=== PATIENT | female | born 1980 | race Caucasian/White ===

== ENCOUNTER 2016-09-22 08:07 | Day surgery (SDC) | payer BC, MEDICAID ==
[~2016-09-22 08:07] MED LIST: Buffered Lidocaine 0.9% SYRIN* 5 ML/SYR SYRINGE INTRADERM ONE; Dexamethasone IV* 4 MG/ML 1 ML (4 MG) IV SLOW PU ONE; Famotidine IV* 10 MG/ML 2 ML (20 mg) IV ONE
[2016-09-22] MEDS ORDERED: Dexamethasone IV* 4 MG/ML 1 ML (4 MG) ONE (08:15)
[2016-09-22] MEDS ORDERED: Buffered Lidocaine 0.9% SYRIN* 5 ML/SYR SYRINGE ONE (08:15)
[2016-09-22] MEDS ORDERED: ceFAZolin 2 GM in 100 MLS NS (*) BAG IVPB ONE (08:15)
[2016-09-22] MEDS ORDERED: Famotidine IV* 10 MG/ML 2 ML (20 mg) ONE (08:15)
[2016-09-22] MEDS ORDERED: fentaNYL* 50 MCG/ML 2 ML VIAL (100 MCG VIAL) ONE (09:06)
[2016-09-22] MEDS ORDERED: Midazolam* 1 MG/ML 5 ML VIAL (5 MG) ONE (09:06)
[2016-09-22] MEDS ORDERED: Ondansetron INJ* 2 MG/ML VIAL ONE (09:06)
[2016-09-22] MEDS ORDERED: Propofol* 10 MG/ML 20 ML BTL IV PUSH ONE (09:06)
[2016-09-22] MEDS ORDERED: Lidocaine 1% INJ* 10 MG/ML 30 ML SDV ONE ×2 (09:32→10:39)
[2016-09-22] MEDS ORDERED: oxyCODONE/Acetamin 5/325 MG* TAB PO PRN ×2 (09:39→11:09)
[2016-09-22] MEDS ORDERED: Ondansetron INJ* 2 MG/ML VIAL IV PRN (09:39)
[2016-09-22] MEDS ORDERED: Lidocaine 2% PF * 5 ML VIAL ONE (09:59)
--- NOTE | 2016-09-22 11:36 | RAD ---
Indication: Post LEFT chest port placement. Assess for pneumothorax. Comparison: January 16, 2015 Technique: Upright AP 1115 hours Report: Tip of LEFT chest port is at the level of the superior vena cava just above the RIGHT atrial junction. Negative for pneumothorax. Clear lungs and pleural spaces. The heart, pulmonary vasculature, and mediastinal contours are unremarkable. Unremarkable osseous structures and soft tissue contours. IMPRESSION: Negative for pneumothorax post LEFT chest port placement.
[2016-09-22 11:52] VITALS: BP 124/80
--- NOTE | 2016-09-22 11:56 | RAD ---
INDICATION: LEFT chest power port placement. COMPARISON: No relevant prior exams available on the [facility] PACS for comparison. TECHNIQUE: 29.7 seconds fluoroscopy. FINDINGS: Tip of the LEFT chest port is visualized at the level of the superior vena cava RIGHT atrial junction. IMPRESSION: Procedural fluoroscopy. CPT II Codes: 6045F
--- NOTE | 2016-09-23 03:42 | OP ---
CC: CHE Macedo; Felton Geiger MD * DATE OF OPERATION: 09/22/[address] - [facility] DATE OF : 76 SURGEON: Dr. Cifuentes. SLAG EXPANDER: None. ANESTHESIOLOGIST: Dr. Felton Agosto. ANESTHESIA: Local MAC. PRE-OP DIAGNOSIS: Rheumatoid arthritis. POST-OP DIAGNOSIS: Rheumatoid arthritis. OPERATIVE PROCEDURE: PowerPort placement, left internal jugular. ESTIMATED BLOOD LOSS: 10 mL. IV FLUIDS: Crystalloids. SPECIMENS: None. DRAINS: None. COMPLICATIONS: None. COUNT: The instrument, needle, and sponge counts were correct. DESCRIPTION OF PROCEDURE: The patient was brought to the operating room and placed on the operating room table supine. The patient was positioned and padded appropriately. She received appropriately intravenous antibiotics and she was prepped and draped in the usual sterile fashion and a time-out was performed. Local anesthetic was infiltrated initially for a left subclavian approach. Initial blood returned appeared arterial and therefore the needle was withdrawn and pressure applied to the site. There was no evidence of hematoma. Several additional attempts were made to access the vein without success. Ultimately, the ultrasound was then used to access the left internal jugular vein and guidewire was positioned into the superior vena cava without difficulty. The additional local anesthetic was infiltrated in the left upper chest to create a subcutaneous pocket with the use of cautery. An 8-Amharic PowerPort was then tunneled from the guidewire insertion site to the pocket and then a peel away and dilator were advanced under fluoroscopic guidance into the superior vena cava. After the dilator and guidewire were removed, the catheter was threaded into the superior vena cava and it was positioned with good tip at the atriocaval junction. The peel away sheath was removed. The catheter was cut to about 29 cm and then was attached to the port which was placed into the pocket and it was secured with a single 2-0 Surgipro suture. The port was accessed and it withdrew and flushed easily. The wounds were closed with 3-0 Polysorb to approximate the subcutaneous tissues and 4- 0 Monocryl to close the skin in a subcuticular fashion. Steri-Strips were applied. The port was once again accessed and flushed with heparinized saline. 2x2 gauze dressings and Tegaderm dressings were placed over the wounds. The patient tolerated the procedure well and was transferred to Recovery stable. [id number]/[facility] #: [id number] NUSRAT
== END 2016-09-22 12:00 | disposition home or self-care (01) ==
LOC: OR 08:07
PROVIDERS: ATTEND Surgery
DX: M06.09 Rheumatoid arthritis without rheumatoid factor, multiple sites (principal); F17.210 Nicotine dependence, cigarettes, uncomplicated; I34.1 Nonrheumatic mitral (valve) prolapse; R20.0 Anesthesia of skin
CPT/HCPCS: 71010; 76001; C1788; J1100; J1642; J2001; J2250; J2405; J2704; J3010

== ENCOUNTER 2017-01-06 09:27 | Emergency (ER) | payer BC, MEDICAID ==
[2017-01-06 09:48] VITALS: BP 129/83
--- NOTE | 2017-01-06 10:19 | UC ---
Throat Pain/Nasal Domingo HPI - History of Current Complaint Chief Complaint: UCRespiratory Stated Complaint: SINUS COMPLAINT Hx Obtained From: Patient ?: No Onset/Duration: Gradual Onset, Lasting Days Severity: Moderate Cough: Nonproductive Associated Signs & Symptoms: Positive: Sinus Discomfort, Nasal Discharge. Negative: Dysphagia, FB Sensation, Drooling, Vomiting, Rash Related History: Prior ENT Surgery - Allergies/Home Medications Allergies/Adverse Reactions: Allergies Allergy/AdvReac Type Severity Reaction Status Date / Time Erythromycin Allergy Hives Verified 01/06/17 09:48 Fluconazole [From Diflucan] Allergy See Comment Verified 01/06/17 09:48 Sulfamethoxazole Allergy Hives Verified 01/06/17 09:48 w/Trimethoprim [From Bactrim] Indomethacin AdvReac Headache Verified 01/06/17 09:48 PMH/Surg Hx/FS Hx/Imm Hx Previously Healthy: No - Rheumatoid arthritis. - Surgical History Surgical History: Yes Surgery Procedure, Year, and Place: RT KNEE ARTHROSCOPY 1995. LASIK EYE 2005. SINUS 03/2009. TUBAL 04/2009. SEVERAL D&C FROM [id number], PARTIAL PARTIAL HYSTERECTOMY (has right ovary) 01/26. 2012, left ovary removed, [facility]. LEFT OVARY REMOVED 01/27. BIOPSY - SPLEEN. PORT-09/22/16. [place] sinus surgery by Dr. Partida. - Family History Known Family History: Positive: Unknown, Hypertension - Social History Occupation: Employed Full-time Lives: With Family Alcohol Use: Daily Alcohol Amount: 2-3 daily Substance Use Type: None Smoking Status (MU): Current Some Day Smoker Type: Cigarettes Amount Used/How Often: social smoker Have You Smoked in the Last Year: Yes Household Exposure Type: Cigarettes Review of Systems ENT: Sinus Congestion, Sinus Pain/Tenderness All Other Systems Reviewed And Are Negative: Yes Physical Exam Triage Information Reviewed: Yes Appearance: Well-Appearing, No Pain Distress, Well-Nourished Vital Signs: Initial Vital Signs Temp 98.5 F 01/06/17 09:42 Pulse 126 01/06/17 09:42 Resp 18 01/06/17 09:42 BP 129/83 01/06/17 09:42 Pulse Ox 100 01/06/17 09:42 Vital Signs Reviewed: Yes Eyes: Positive: Conjunctiva Clear ENT: Positive: Pharynx normal, Nasal congestion, TM bulging, Sinus tenderness. Negative: Pharyngeal erythema, Nasal drainage, TM dull, TM red, Tonsillar swelling, Tonsillar exudate, Trismus, Muffled voice, Hoarse voice, Dental tenderness Neck: Positive: Supple, Nontender, No Lymphadenopathy Respiratory: Positive: Chest non-tender, Lungs clear, Normal breath sounds, No respiratory distress, No accessory muscle use. Negative: Respiratory distress, Decreased breath sounds, Accessory muscle use Cardiovascular: Positive: RRR, No Murmur, Pulses Normal, Brisk Capillary Refill Abdomen Description: Positive: Nontender, No Organomegaly, Soft Musculoskeletal: Positive: Strength Intact, ROM Intact, No Edema Neurological: Positive: Alert, Muscle Tone Normal. Negative: Fatigued Psychological: Positive: Age Appropriate Behavior Skin: Negative: rashes Throat Pain/Nasal Course/Dx - Differential Dx/Diagnosis Provider Diagnoses: sinusitis Discharge - Discharge Plan Condition: Good Disposition: HOME Prescriptions: Amoxicillin PO (*) [Amoxicillin 500 MG CAP*] 500 mg PO TID #30 cap Patient Education Materials: Sinusitis (ED) Referrals: Isael Ruiz PA [Primary Care Provider] - If Needed
== END 2017-01-06 10:18 | disposition home or self-care (01) ==
LOC: UCCORT 09:27
DX: J32.9 Chronic sinusitis, unspecified (principal); M06.9 Rheumatoid arthritis, unspecified; F17.210 Nicotine dependence, cigarettes, uncomplicated; Z88.3 Allergy status to other anti-infective agents
CPT/HCPCS: 99212; G0463

== ENCOUNTER 2017-03-26 09:25 | Emergency (ER) | payer BC, MEDICAID ==
[2017-03-26 10:22] VITALS: BP 125/76
--- NOTE | 2017-03-26 11:54 | UC ---
General HPI - HPI Summary HPI Summary: 36 yo female c/o progressive Hip pain R>L, worse starting Wed (today is Wednesday) . Concerned that she may possibly have acetabular impingement syndrome. Her brother was dx'd, as such, she is concerned. Has hx arthralgia and myalgias, attributes to past hx lyme dz in the eraly . Is followed by Dr. Bacon ( rheumatology), [facility]. Has seen orthopedist in the distant past, not for this. No fever /chills. Reports that she otherwise feels ok. No cough / sob / cp. No bowel / bladder issues. No rash. Next remicade is scheduled for next week. Still takes mtx / folate. Denies recent injury. 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 - History of Current Complaint Chief Complaint: UCLowerExtremity Stated Complaint: RT HIP PAIN Time Seen by Provider: 03/26/17 11:34 Hx Obtained From: Patient Pain Intensity: 8 - Allergy/Home Medications Allergies/Adverse Reactions: Allergies Allergy/AdvReac Type Severity Reaction Status Date / Time erythromycin base Allergy Hives Verified 03/26/17 10:25 fluconazole Allergy See Comment Verified 03/26/17 10:25 sulfamethoxazole Allergy Hives Verified 03/26/17 10:25 [From Bactrim] trimethoprim [From Bactrim] Allergy Hives Verified 03/26/17 10:25 indomethacin AdvReac Headache Verified 03/26/17 10:25 PMH/Surg Hx/FS Hx/Imm Hx Previously Healthy: No - see hpi. hx arthritis, hx lyme - Surgical History Surgical History: Yes Surgery Procedure, Year, and Place: RT KNEE ARTHROSCOPY 1995. LASIK EYE 2005. SINUS 03/2009. TUBAL 04/2009. SEVERAL D&C FROM [id number], PARTIAL PARTIAL HYSTERECTOMY (has right ovary) 01/26. 2012, left ovary removed, [facility]. LEFT OVARY REMOVED 01/27. BIOPSY - SPLEEN. PORT-09/22/16. [place] sinus surgery by Dr. Partida. - Family History Known Family History: Positive: Unknown, Hypertension - Social History Alcohol Use: Daily Alcohol Amount: few glasses wine per night Substance Use Type: None Smoking Status (MU): Current Some Day Smoker Type: Cigarettes Amount Used/How Often: social smoker Have You Smoked in the Last Year: Yes Household Exposure Type: Cigarettes Review of Systems Constitutional: Fatigue Skin: Negative Eyes: Negative ENT: Negative Respiratory: Negative Cardiovascular: Negative Gastrointestinal: Negative Genitourinary: Negative Motor: Decreased ROM Neurovascular: Negative Musculoskeletal: Arthralgia, Myalgia Neurological: Negative Psychological: Negative Is Patient Immunocompromised?: No All Other Systems Reviewed And Are Negative: Yes Physical Exam Triage Information Reviewed: Yes Appearance: Well-Nourished - looks uncomfortable, nontoxic. Vital Signs: Initial Vital Signs Temp 98 F 03/26/17 10:14 Pulse 98 03/26/17 10:14 Resp 18 03/26/17 10:14 BP 125/76 03/26/17 10:14 Pulse Ox 100 03/26/17 10:14 Eye Exam: Normal - grossly normal ENT Exam: Normal - grossly normal Neck exam: Normal Neck: Positive: Supple Respiratory Exam: Normal Respiratory: Positive: Chest non-tender, Lungs clear, Normal breath sounds, No respiratory distress, No accessory muscle use Cardiovascular Exam: Normal Cardiovascular: Positive: RRR, No Murmur, Pulses Normal, Brisk Capillary Refill Abdominal Exam: Normal Abdomen Description: Positive: Nontender Musculoskeletal Exam: Other - Bilat hip, diffuse tender. Able to ambulate, but painful. No distal p/d/w. Frog leg exam not done in room d/t pain. Diffuse lumbar region discomfort. No point focal tenderness. Neurological Exam: Normal - grossly nonfocal, however detailed not done, Other Psychological Exam: Normal - conversing easily and appropriately Skin Exam: Normal - non-diaphoretic. no visible or reported rash Course/Dx - Course Course Of Treatment: No new problems in CCC. Reviewed xrays, reports. D/w pt coa / tx plan. She will f/u Dr. Bacon next week. Plan for upcoming remicade, also blood work. Rx norco # 20. ISTOP ref # [id number]. Recommend orthopedic doctor, if possible in the next couple weeks. She is searching for an orthopedist. - Differential Dx - Multi-Symptom Provider Diagnoses: Arthritis. Autoimmune d/o Discharge - Discharge Plan Condition: Stable Disposition: HOME Prescriptions: HYDROcodone/ACETAMIN 5-325 MG* [[place] 5-325 TAB*] 2 tab PO Q6H PRN #20 tab MDD 8 PRN Reason: Pain Patient Education Materials: Autoimmune Disease (ED), Arthritis (ED) Referrals: Isael Ruiz PA [Primary Care Provider] - Additional Instructions: take stool softener, while taking pain medication. follow up with dr. Bacon, and your primary care physician. seek medical attention for worse or new problems.
--- NOTE | 2017-03-26 12:24 | RAD ---
INDICATION: Low back pain. COMPARISON: There are no prior studies available for comparison. TECHNIQUE: 5 views of the lumbar spine were obtained including lateral, oblique, AP and a coned-down lateral view of the lumbar sacral junction. FINDINGS: There is a mild lumbar scoliosis convex toward the left side. The vertebra are otherwise in normal alignment. No fracture is seen. There is mild degenerative disc disease at the L3-L4, L4-L5 and L5-S1 levels. IMPRESSION: MILD DEGENERATIVE DISC DISEASE.
--- NOTE | 2017-03-26 12:26 | RAD ---
INDICATION: Bilateral hip pain. COMPARISON: There are no prior studies available for comparison. TECHNIQUE: An AP view of the pelvis and frontal and lateral views of both hips were obtained. FINDINGS: The bones are normal alignment. No fracture is seen. There is mild bilateral osteoarthritic change in the hips. IMPRESSION: MILD BILATERAL OSTEOARTHRITIC CHANGE IN THE HIPS.
== END 2017-03-26 13:09 | disposition home or self-care (01) ==
LOC: UCCORT 09:25
DX: M16.0 Bilateral primary osteoarthritis of hip (principal); D89.89 Other specified disorders involving the immune mechanism, not elsewhere classified; F17.210 Nicotine dependence, cigarettes, uncomplicated
CPT/HCPCS: 72110; 73523; 99212; G0463

== ENCOUNTER 2017-10-25 06:22 | Day surgery (SDC) | payer BC, MEDICAID ==
--- NOTE | 2017-10-21 11:23 | HP ---
PREOPERATIVE HISTORY AND PHYSICAL: DATE OF ADMISSION/SURGERY: 10/25/17 - [facility] DATE OF OFFICE VISIT: 10/19/17 ATTENDING SURGEON: Dr. Charlotte Reese.* (DICTATED BY CHE GAO) PROCEDURE: Right shoulder arthroscopic decompression, debridement, and biceps tenotomy. CHIEF COMPLAINT: Right shoulder. HISTORY OF PRESENT ILLNESS: Antonieta is a 37-year-old female, who presents to clinic for followup of her right shoulder injury after original injury in 1995. She has had pain for several years and failed physical therapy. She just recently got an MRI and presents for MRI results. She has had a sharp shooting pain in the anterolateral aspect of the right shoulder. She denies numbness, tingling, fever, chills, chest pain, shortness of breath, and is doing well otherwise. PAST MEDICAL HISTORY: Rheumatoid arthritis and history of Lyme disease. PAST SURGICAL HISTORY: Right knee scope, spleen biopsy, hysterectomy, and a port placement. The patient denies prior complications with anesthesia. MEDICATIONS: 1. Remicade 100 mg 1 by mouth every 8 hours. 2. Methotrexate 2.5 mg, take 2 tabs by mouth every week. 3. Cyclobenzaprine 5 mg 1 by mouth in the morning, 1 at noon, 1 at dinner time , 1 at bedtime. 4. Folic acid 1 mg 1 by mouth every day. 5. Gabapentin 300 mg 3 capsules at bedtime. ALLERGIES: ERYTHROMYCIN, DIFLUCAN, BACTRIM, INDOMETHACIN. FAMILY HISTORY: Positive for hypertension and rheumatoid arthritis. SOCIAL HISTORY: She lives with her kids. 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 She is a former smoker and quit several years ago. She reports alcohol consumption. She denies illegal drug use. REVIEW OF SYSTEMS: A 14-point review of systems was reviewed with the patient, positive for current complaint, otherwise negative. Denies fever, chills, chest pain, shortness of breath. Denies history of DVT or PE. Denies history of MRSA or bleeding disorder. PHYSICAL EXAMINATION GENERAL: A 37-year-old, well-developed, well-nourished female, in no acute distress. Alert and oriented x3. Appropriate mood and affect. Appropriate balance and coordination of the upper extremities. VITAL SIGNS: Height 63, weight 137, blood pressure 120/70, respiratory rate 18 , BMI 24.3. HEENT: Normocephalic, atraumatic. PERRLA. Throat clear. NECK: Supple. PULMONARY: Lungs are clear to auscultation bilaterally. No wheezing, rhonchi, or rales. CARDIO: Regular rate and rhythm. S1 and S2. No murmurs, gallops, or rubs. No edema. ABDOMEN: Positive bowel sounds. Soft, nontender. MUSCULOSKELETAL: Right shoulder: Skin is intact. No warmth or erythema. Nontender to palpation of the proximal biceps tendon, nontender subacromial space to the anterior joint line. Forward flexion and abduction 175, external rotation 65, internal rotation to T10. +4/5 strength on supraspinatus testing with pain. +5/5 on infraspinatus and subscapularis testing. Positive impingement, Speed's, Lawrence-Prasanna, and Upton. +2 radial pulse. Sensation is intact to light touch distally. Neurovascularly intact. NEURO: Alert and oriented x3. Cranial nerves grossly intact. Sensation intact to light touch. DIAGNOSTIC STUDIES: MRI of the right shoulder revealed SLAP tear as well as thickened biceps tendon with surrounding fluid. The rotator cuff appears intact. IMPRESSION: Right shoulder impingement and biceps tendinitis. PLAN: Antonieta is a 37-year-old female, who presents to the clinic for right shoulder MRI results. She has impingement and biceps tendinitis. She has failed conservative measures and has had several years of pain. Therefore, she has agreed to undergo right total arthroscopic decompression, debridement, biceps tenotomy with Dr. Reese on 10/25/17. Risks of surgery to include risk of anesthesia; risk of DVT or PE; injury to blood vessels, nerves, surrounding structures; bleeding; infection; numbness; persistent pain; stiffness were discussed with the patient and the patient would like to undergo the surgery. She was instructed to discuss her rheumatoid arthritis meds with Dr. Geiger to see if she needs to stop them preoperatively. Oxycodone will be postoperative pain management. She will follow up 10 to 14 days postop. CHE GAO [id number]/[facility] #: [id number] [facility] CENTERLars
[~2017-10-25 06:22] MED LIST changes: -Dexamethasone IV* 4 MG/ML 1 ML (4 MG) IV SLOW PU ONE; +Famotidine IV* 10 MG/ML 2 ML (20 mg) ONE
[2017-10-25] MEDS ORDERED: ceFAZolin 2 GM in NS PREMIX(*) 0 GM/0 ML BAG IVPB ONE (06:36)
[2017-10-25] MEDS ORDERED: ROPIVACAINE 5 MG/ML 30 ML BTL (0.5%) ONE ×2 (07:04→07:25)
[2017-10-25] MEDS ORDERED: Lidocain 1% EPI 1:100,000 * 30 ML MDV ONE (07:21)
[2017-10-25] MEDS ORDERED: fentaNYL* 50 MCG/ML 2 ML VIAL (100 MCG VIAL) ONE (07:24)
[2017-10-25] MEDS ORDERED: Lidocaine 1% INJ* 10 MG/ML 30 ML SDV ONE (07:24)
[2017-10-25] MEDS ORDERED: Midazolam* 1 MG/ML 5 ML VIAL (5 MG) ONE (07:25)
[2017-10-25] MEDS ORDERED: Lidocaine 1%* 5 ML VIAL ONE (07:27)
[2017-10-25] MEDS ORDERED: ceFAZolin 2 GM in NS PREMIX(*) 2 GM/100 ML BAG IVPB ONE (07:36)
[2017-10-25] MEDS ORDERED: KETAMINE HCL* 50 MG/ML 10 ML VIAL ONE (08:02)
[2017-10-25] MEDS ORDERED: Ketorolac INJ* 30 MG/ML 1 ML VIAL ONE (08:15)
[2017-10-25] MEDS ORDERED: Ondansetron INJ* 2 MG/ML VIAL ONE (08:15)
[2017-10-25] MEDS ORDERED: Dexamethasone IV* 4 MG/ML 1 ML (4 MG) ONE (08:15)
[2017-10-25] MEDS ORDERED: DiMENhydriNATE IV* 50 MG/ML VIAL ONE (08:15)
[2017-10-25] MEDS ORDERED: Propofol* 10 MG/ML 20 ML BTL IV PUSH ONE (08:15)
[2017-10-25] MEDS ORDERED: Lidocaine 2% PF * 5 ML VIAL ONE (08:15)
[2017-10-25] MEDS ORDERED: methylPREDNISolone ACETATE 80* 80 MG/ML 1 ML VIAL ONE (08:25)
[2017-10-25] MEDS ORDERED: Naloxone* 0.4 MG/ML 1 ML VIAL IV PRN (08:55)
[2017-10-25] MEDS ORDERED: Acetaminophen TAB* 325 MG PO PRN (08:55)
[2017-10-25] MEDS ORDERED: DiMENhydriNATE IV* 50 MG/ML VIAL IV PUSH PRN (08:55)
[2017-10-25] MEDS ORDERED: oxyCODONE TAB* 5 MG TAB PO PRN (08:55)
[2017-10-25 09:55] VITALS: BP 126/83
--- NOTE | 2017-10-25 10:36 | OP ---
CC: Dr. Geiger; PCP OPERATIVE REPORT: DATE OF OPERATION: 10/25/17 DATE OF : 76 ATTENDING SURGEON: Charlotte Reese MD CUT ORDER HAND: CHE King. Desktop Support Consultant was needed for the entirety of the case to help with positioning, retraction, and was utilized throughout all portions of the case. ANESTHESIOLOGIST: Dr. Long. ANESTHESIA: General w/ interscalene block. PRE-OP DIAGNOSIS: Right shoulder impingement with bicipital tendonitis. POST-OP DIAGNOSES: Right shoulder impingement with bicipital tendonitis and a low- grade partial tearing of the supraspinatus. OPERATIVE PROCEDURE: 1. Right shoulder arthroscopy with extensive glenohumeral debridement including biceps tenotomy. 2. Subacromial decompression with acromioplasty. 3. Injection of 80 mg of Depo-Medrol. COMPLICATIONS: None. ESTIMATED BLOOD LOSS: Minimal. INDICATIONS: Antonieta Nava is a 37-year-old female with persistent shoulder pain refractory to conservative management. She initially injured it in 1995. She has had persistent pain. She also has a history of rheumatoid arthritis, and it has not helped very much. 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 She takes Flexeril and gabapentin for the pain. She has done physical therapy and has had no relief. Risks and benefits of surgery were discussed at length and included, but not limited to bleeding, infection, damage to nerves, vessels, surrounding structures, wound nonhealing, persistent pain, need for further surgery, scarring, stiffness, incomplete relief of symptoms, risks of anesthesia. DESCRIPTION OF PROCEDURE: The patient was greeted in the preoperative area by the attending surgeon. Correct extremity was marked and the consent was confirmed. The patient was then brought back to the operating suite where she was placed in the supine position on the operating table. She underwent interscalene nerve block in the preoperative area. She then came back to the operating room. She was placed in supine position, she underwent LMA intubation after which she was placed in the left lateral decubitus position with an axillary roll. All bony prominences were padded. She was secured with a peg board. The right shoulder was draped unsterile with 10 pounds traction. The right shoulder was prepped and draped in the usual sterile fashion beginning with chlorhexidine soap, scrub, and alcohol wipe and a final prep with ChloraPrep. After appropriate surgical pause indicating site, side, procedure and administration of antibiotics, the standard posterolateral portal was made sharply with an 11-blade. Scope was introduced into the joint, the joint was examined. There was evidence of bicipital tendinosis with damage to the loreta. There was undersurface tearing of the supraspinatus with a small flap. The subscap was intact. There was synovitis throughout the joint. The humeral head had grade 0 to 1 changes. The glenoid had grade 1 and 2 changes with small fraying in the center. The inferior recess was intact. At this point, the anterior portal was made in an outside-in fashion. A shaver was used to debride back the anterior, posterior, superior labrum. The biceps was then tenotomized. The undersurface of the supraspinatus tendon was then debrided back as well. The decision was made to eric the tendon to see if it was a high grade partial tear. The tendon quality appeared to be pretty good, but we are going to check on the bursal side to make sure it was not torn. If it was torn , we may consider doing a patch augmentation. Attention was directed to the subacromial space. The lateral portal was made in an outside-in fashion. Shaver was used to debride back the abundant bursa that was present. The undersurface of the acromion was then skeletonized. CA ligament was released. There was an irregular spur. The bone quality was quite poor, but a 4-0 oval graeme was then used to do an acromioplasty. The cuff was then examined. It was found to be intact. There was no high-grade or low- grade partial thickness tears. The decision was made to not do any kind of patch augmentation as there was no significant tearing. Final images were obtained. An 18-gauge needle was used to later place the Depo-Medrol injection for pain control. The wounds were copiously irrigated with sterile saline. The portals were closed with 3-0 nylon. Sterile dressings were applied. 80 mg of depomedrol were injected into the joint. A Cryo/Cuff and a sling were applied. She was awoken from anesthesia and transferred to PACU in stable condition. POSTOPERATIVE PLAN: She will be nonweightbearing but she will be allowed range of motion as tolerated. She will be discharged on pain medications. DVT prophylaxis was considered, but deferred due to no previous personal or family history. She is now allowed to start her Remicade back for at least 4 weeks from surgery. [id number]/[facility] #: [id number] MTDD
== END 2017-10-25 09:53 | disposition home or self-care (01) ==
LOC: OREAST 06:22
PROVIDERS: ATTEND Orthopaedic Surgery
DX: M75.41 Impingement syndrome of right shoulder (principal); M75.21 Bicipital tendinitis, right shoulder; M75.111 Incomplete rotator cuff tear or rupture of right shoulder, not specified as traumatic; Z87.891 Personal history of nicotine dependence; M06.9 Rheumatoid arthritis, unspecified; G89.18 Other acute postprocedural pain
CPT/HCPCS: 88304; J0690; J1040; J1100; J1240; J1885; J2250; J2405; J2704; J2795; J3010

== ENCOUNTER → 2018-02-09 09:48 | Day surgery (SDC) | payer BC, MEDICAID ==
--- NOTE | 2018-02-04 07:30 | HP ---
PREOPERATIVE HISTORY AND PHYSICAL: DATE OF ADMISSION/SURGERY: 02/09/18 DATE OF OFFICE VISIT: 02/03/18 ATTENDING SURGEON: Dr. Charlotte Reese.* (DICTATED BY CHE GAO) PROCEDURE: Right shoulder arthroscopic decompression, debridement, excision of distal clavicle, and possible subpectoral biceps tenodesis. CHIEF COMPLAINT: Right shoulder. HISTORY OF PRESENT ILLNESS: Antonieta is a 37-year-old female who presents to the clinic for a followup of her right shoulder pain. She had a previous right shoulder arthroscopic decompression, debridement, and biceps tenotomy performed on 10/25/17. She had an injury after surgery and since that time has had increased pain in the shoulder. She is here today for MRI followup. She denies fever, chills, chest pain, shortness of breath, and is doing well otherwise. PAST MEDICAL HISTORY: Rheumatoid arthritis and Lyme disease. PAST SURGICAL HISTORY: Right knee scope, skin biopsy, hysterectomy, port placement, right shoulder surgery. The patient denies prior complications with anesthesia. MEDICATIONS: 1. Remicade 100 mg every 8 weeks. 2. Knee brace as needed. 3. Methotrexate 2.5 mg 2 tabs every week. 4. Cyclobenzaprine 5 mg 1 by mouth in the morning, at noon, dinnertime, and at bedtime. 5. Folic acid 1 daily. 6. Gabapentin 300 mg 1 by mouth 3 times a day and 2 capsules at bedtime. ALLERGIES: ERYTHROMYCIN, DIFLUCAN, BACTRIM, INDOMETHACIN. FAMILY HISTORY: Positive for hypertension and rheumatoid. SOCIAL HISTORY: She lives with her kids. 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 She is a former smoker, quit several years ago. She reports alcohol consumption. She denies illegal drug use. REVIEW OF SYSTEMS: A 14-point review of systems was reviewed with the patient. Positive for current complaint, otherwise negative. Denies fever, chills, chest pain, shortness of breath, history of DVT or PE, history of bleeding disorder. PHYSICAL EXAMINATION GENERAL: A 37-year-old female, in no acute distress. Alert and oriented x3. VITAL SIGNS: Height 63, weight 137, blood pressure 112/74, respiratory rate 18 , BMI 24.3. HEENT: Normocephalic, atraumatic. PERRLA. Throat clear. NECK: Supple. PULMONARY: Lungs are clear to auscultation bilaterally. No wheezing, rhonchi, or rales. CARDIO: Regular rate and rhythm. S1, S2. No murmurs, gallops, or rubs. No edema. ABDOMEN: Positive bowel sounds. Soft, nontender. NEURO: Alert and oriented x3. Cranial nerves grossly intact. Sensation intact to light touch distally. MUSCULOSKELETAL: Right upper extremity: Well-healed surgical incision. Tenderness over the anterior interval. Forward flexion and abduction 175, external rotation 65, internal rotation to T8. +5/5 strength to rotator cuff testing, though with significant pain. Positive impingement, Speed, [place], [place]. +2 radial pulse. Sensation intact to light touch distally. Tender over the AC joint and the proximal biceps tendon. DIAGNOSTIC STUDIES: MRI from 01/25/18 was independently reviewed by Dr. Reese and revealed a high-grade tear of the biceps tendon with a supraspinatus tendinosis, no obvious full-thickness rotator cuff tear, and subacromial bursitis. She also has AC joint arthritis. IMPRESSION: Right shoulder impingement, AC joint arthritis, and biceps tendinitis. PLAN: The patient has failed conservative measures and has persistent pain; therefore, agreed to undergo a right shoulder arthroscopic decompression, debridement, excision of distal clavicle, and possible subpectoral biceps tenodesis with Dr. Reese on 02/09/18. She has been off of her Remicade since 01/05/18. It was also explained to the patient that if they require access through the port during surgery and are unable to get it, they can contact the [facility]fusion [facility] in the hospital for assistance. Risks of surgery to include infection, bleeding, injury to blood vessels, nerves, surrounding structures, numbness, persistent pain, risks of anesthesia, and risks of DVT or PE were discussed with the patient. She has agreed to undergo the procedure. She will follow up 10 to 14 days postop for followup and suture removal. Percocet will be used for postop pain management. CHE GAO [id number]/[facility] #: [id number] [facility]ITALLars
[~2018-02-09 09:48] MED LIST changes: +Atracurium* 10 MG/ML 10 ML VIAL ONE; +Dexamethasone IV* 4 MG/ML 1 ML (4 MG) IV SLOW PU ONE; +Dexamethasone IV* 4 MG/ML 1 ML (4 MG) ONE; +DiMENhydriNATE IV* 50 MG/ML VIAL IV PUSH PRN; +HYDROmorphone INJ1* 1 MG/ML SYRINGE IV PRN; +Lactated Ringers 1000 ML Bag* 1,000 ML IV SCH; +Midazolam* 1 MG/ML 5 ML VIAL (5 MG) ONE; +Naloxone* 0.4 MG/ML 1 ML VIAL IV PRN; +Ondansetron INJ* 2 MG/ML VIAL IV PRN; +Ondansetron INJ* 2 MG/ML VIAL ONE; +Propofol* 10 MG/ML 20 ML BTL ONE; +ROPIVACAINE 5 MG/ML 30 ML BTL (0.5%) ONE; +Scopolamine 1.5 mg* PATCH TRANSDERM PRN; +ceFAZolin 2 GM PREMIX in ORs 2 GM/50 ML BAG IVPB ONE; +fentaNYL* 50 MCG/ML 2 ML VIAL (100 MCG VIAL) IV PRN; +fentaNYL* 50 MCG/ML 2 ML VIAL (100 MCG VIAL) ONE; +oxyCODONE/Acetamin 5/325 MG* TAB ONE; +oxyCODONE/Acetamin 5/325 MG* TAB PO PRN
[2018-02-09 15:10] VITALS: BP 126/85
--- NOTE | 2018-02-11 02:09 | OP ---
OPERATIVE REPORT: DATE OF OPERATION: 02/09/18 - [facility] DATE OF : 76 SURGEON: Charlotte Reese MD. TRIM ATTACHER: CHE King. An assistant boiler operator was needed for the entirety of the case to help with positioning, retraction, and utilized throughout all portions of the case. ANESTHESIOLOGIST: Dr. Agosto. ANESTHESIA: General interscalene block. PRE-OP DIAGNOSIS: Right shoulder high-grade partial-thickness tear of the rotator cuff and AC joint arthritis. POST-OP DIAGNOSIS: Right shoulder high-grade partial-thickness tear of the rotator cuff and AC joint arthritis. OPERATIVE PROCEDURE: 1. Right shoulder arthroscopy with limited debridement. 2. Revision acromioplasty. 3. Distal clavicle excision, arthroscopic. 4. Rotator cuff repair using Regeneten patch. COMPLICATIONS: None. ESTIMATED BLOOD LOSS: Minimal. IMPLANTS USED: Regeneten patch size medium with appropriate tendon jeovanny and bone jeovanny. INDICATIONS: Antonieta Nava is a 37-year-old female who underwent previous arthroscopy with decompression, debridement, and tenotomy. She continued to have persistent pain and struggles. She did have a high-grade partial- thickness tear. At the time of surgery, a decision was made because she is a rheumatoid patient to not repair it as it will be a long recovery time and may not heal. Because she failed, decision was made to try the rotator cuff repair and she started to develop AC joint pain at the same time. Risks and benefits were discussed at length and include but are not limited to bleeding, infection , damage to nerves, vessels, surrounding structures, wound nonhealing, persistent pain, need for further surgery, scarring, stiffness, incomplete relief of symptoms, risks of anesthesia. DESCRIPTION OF PROCEDURE: The patient was greeted in the preoperative area by the attending surgeon. Correct extremity was marked and consent was confirmed. The patient underwent interscalene nerve block by the anesthesiologist, after which she was brought back to the operating suite where she was placed in supine position on the operating table. She underwent general anesthesia and endotracheal intubation, after which she was placed in the left lateral decubitus position with all bony prominences well padded. She was secured with a peg board. The right shoulder was then prepped and draped in the usual sterile fashion beginning with chlorhexidine soap, scrub, and alcohol wipe and a final prep with ChloraPrep. After appropriate surgical pause indicating side, site, procedure, and administration of antibiotics, standard posterolateral portal was made sharply with 11 blade. The scope was introduced into the joint and the joint was examined. There were obvious changes of synovitis. The biceps has previously been tenotomized. There was mild fraying of the anterior posterior labrum, which was debrided back. The undersurface of the rotator cuff was visualized. There was high-grade partial-thickness tear. Once this was completed, attention was directed to the subacromial space. With the scope in the subacromial space, the residual bursa was then debrided back using a shaver. The undersurface of the acromion was skeletonized using electrocautery, but the small anterolateral spur was still present. A 4-0 oval graeme was used to do an acromioplasty. All loose debris was removed and attention was then directed to the distal clavicle. The graeme was brought to the anterior portal and the distal clavicle was excised. Approximately 8 mm were excised using the graeme. Good care to prevent to any damage to the ligament. This was confirmed; however, on arthroscopic visualization, her bone quality was quite poor. Attention was then directed to the rotator cuff. The rotator cuff was examined. There was some partial-thickness tearing about the bursal site as well and decision was again to proceed with a Regeneten patch. The Regeneten patch was brought to the field and placed under arthroscopic visualization. Then through a separate stab incision, a cannula was placed to allow for passage of tendon jeovanny. The graft was secured medially with tendon jeovanny and then laterally with the PEEK bone jeovanny. Final images were obtained and wounds were then copiously irrigated with sterile saline. The portals were closed with 3-0 nylon. Sterile dressings were applied. She was awoken from anesthesia and transferred to the PACU in stable condition. POSTOPERATIVE PLAN: She will be nonweightbearing. She will be discharged on pain medications. She will start physical therapy. She will be allowed elbow, hand, and wrist range of motion. I will see the patient back in 10 to 14 days. DVT prophylaxis was considered, but deferred due to no previous personal or family history. [id number]/[facility] #: [id number] NUSRAT
== END | disposition home or self-care (01) ==
LOC: OR 09:48
PROVIDERS: ATTEND Orthopaedic Surgery
DX: M75.111 Incomplete rotator cuff tear or rupture of right shoulder, not specified as traumatic (principal); M75.41 Impingement syndrome of right shoulder; M75.21 Bicipital tendinitis, right shoulder; M19.011 Primary osteoarthritis, right shoulder; M06.9 Rheumatoid arthritis, unspecified; I34.1 Nonrheumatic mitral (valve) prolapse; I73.00 Raynaud's syndrome without gangrene; G89.18 Other acute postprocedural pain
CPT/HCPCS: A9270-GY; C1713; J0690; J1100; J1642; J2250; J2405; J2704; J2795; J3010

== ENCOUNTER 2019-02-03 07:46 | Day surgery (SDC) | payer BC, MEDICAID ==
[~2019-02-03 07:46] MED LIST changes: -Atracurium* 10 MG/ML 10 ML VIAL ONE; -Buffered Lidocaine 0.9% SYRIN* 5 ML/SYR SYRINGE INTRADERM ONE; +Buffered Lidocaine 1% SYRIN* 1 ML/SYRINGE INTRADERM ONE; -Dexamethasone IV* 4 MG/ML 1 ML (4 MG) IV SLOW PU ONE; -Dexamethasone IV* 4 MG/ML 1 ML (4 MG) ONE; -DiMENhydriNATE IV* 50 MG/ML VIAL IV PUSH PRN; -Famotidine IV* 10 MG/ML 2 ML (20 mg) ONE; -HYDROmorphone INJ1* 1 MG/ML SYRINGE IV PRN; -Midazolam* 1 MG/ML 5 ML VIAL (5 MG) ONE; -Naloxone* 0.4 MG/ML 1 ML VIAL IV PRN; -Ondansetron INJ* 2 MG/ML VIAL IV PRN; -Ondansetron INJ* 2 MG/ML VIAL ONE; -Propofol* 10 MG/ML 20 ML BTL ONE; -ROPIVACAINE 5 MG/ML 30 ML BTL (0.5%) ONE; -Scopolamine 1.5 mg* PATCH TRANSDERM PRN; -ceFAZolin 2 GM PREMIX in ORs 2 GM/50 ML BAG IVPB ONE; -fentaNYL* 50 MCG/ML 2 ML VIAL (100 MCG VIAL) IV PRN; -fentaNYL* 50 MCG/ML 2 ML VIAL (100 MCG VIAL) ONE; -oxyCODONE/Acetamin 5/325 MG* TAB ONE; -oxyCODONE/Acetamin 5/325 MG* TAB PO PRN
[2019-02-03] MEDS ORDERED: Famotidine IV* 10 MG/ML 2 ML (20 mg) ONE (07:52)
[2019-02-03] MEDS ORDERED: ceFAZolin 2 GM PREMIX in ORs 2 GM/50 ML BAG ONE (07:52)
[2019-02-03] MEDS ORDERED: Midazolam* 1 MG/ML 5 ML VIAL (5 MG) ONE (08:46)
[2019-02-03] MEDS ORDERED: fentaNYL* 50 MCG/ML 2 ML VIAL (100 MCG VIAL) ONE ×2 (08:46→10:19)
[2019-02-03] MEDS ORDERED: ROPIVACAINE 5 MG/ML 30 ML BTL (0.5%) ONE (09:29)
[2019-02-03] MEDS ORDERED: Lidocaine 1% MPF ** 5 ML VIAL ONE (09:30)
[2019-02-03] MEDS ORDERED: KETAMINE HCL* 50 MG/ML 10 ML VIAL ONE (10:13)
[2019-02-03] MEDS ORDERED: Dexamethasone IV* 4 MG/ML 1 ML (4 MG) ONE (10:19)
[2019-02-03] MEDS ORDERED: Ketorolac INJ* 30 MG/ML 1 ML VIAL ONE (10:19)
[2019-02-03] MEDS ORDERED: DiMENhydriNATE IV* 50 MG/ML VIAL ONE (10:19)
[2019-02-03] MEDS ORDERED: Lidocaine 2% PF * 5 ML VIAL ONE (10:19)
[2019-02-03] MEDS ORDERED: Ondansetron INJ* 2 MG/ML VIAL ONE (10:19)
[2019-02-03] MEDS ORDERED: Propofol* 10 MG/ML 20 ML BTL ONE (10:19)
[2019-02-03] MEDS ORDERED: Acetaminophen TAB* 325 MG PO PRN (11:10)
[2019-02-03] MEDS ORDERED: Naloxone* 0.4 MG/ML 1 ML VIAL IV PRN (11:10)
[2019-02-03] MEDS ORDERED: DiMENhydriNATE IV* 50 MG/ML VIAL IV PUSH PRN (11:10)
[2019-02-03] MEDS ORDERED: oxyCODONE TAB* 5 MG TAB PO PRN (11:10)
[2019-02-03 12:43] VITALS: BP 117/71
--- NOTE | 2019-02-07 02:53 | OP ---
OPERATIVE REPORT: DATE OF OPERATION: 02/03/19 - [facility] DATE OF : 76 SURGEON: Charlotte Reese MD STRAP MAKER: CHE King ANESTHESIOLOGIST: Dr. Long. ANESTHESIA: General interscalene block. PRE-OP DIAGNOSIS: Left shoulder high-grade partial thickness tear of the rotator cuff with bicipital tendonitis. POST-OP DIAGNOSIS: Left shoulder high-grade partial thickness tear of the rotator cuff with bicipital tendonitis. OPERATIVE PROCEDURE: Right shoulder arthroscopy with: 1. Extensive glenohumeral debridement including biceps tenotomy. 2. Subacromial decompression with acromioplasty. 3. Rotator cuff repair using Regeneten patch size medium. COMPLICATIONS: None. ESTIMATED BLOOD LOSS: Minimal. INDICATIONS: Antonieta Nava is a 38-year-old female who has had persistent shoulder pain. She has rheumatoid arthritis. She has failed conservative management and elected to proceed with surgical treatment. Risks and benefits were discussed at length including but not limited to bleeding; infection; damage to nerves, vessels, surrounding structures; wound nonhealing; persistent pain; need for further surgery; scarring; stiffness; incomplete relief of symptoms; risks of anesthesia. DESCRIPTION OF PROCEDURE: The patient was greeted in the preoperative area by the attending surgeon. Correct extremity was marked. Consent was confirmed. The patient underwent interscalene nerve block by the anesthesiologist, after which she was brought back to the operating suite, placed in supine position on the operating table, then underwent general anesthesia and endotracheal intubation, after which she was placed in the right lateral decubitus position. All bony prominences were padded. She was secured with a pegboard. The left arm was draped unsterile with 10 pounds of traction. The left shoulder was prepped and draped in the usual sterile fashion using chlorhexidine soap, scrub , and alcohol wipe and a final prep with ChloraPrep. After appropriate surgical pause indicating side, site, procedure, and administration of antibiotics, the standard posterolateral portal was made sharply with 11-blade. Scope was introduced into the joint and the joint was examined. There was abundant synovitis that was present. There was partial- thickness tearing of the rotator cuff. The inferior recess was intact. There were synovitic changes and there was a small [place] lesion. There was evidence of superior labral type 2 changes with bicipital tendinitis and this was then tenotomized. The remainder of the glenohumeral joint had grade 0 to 1 changes. After the intraarticular work was completed, attention was directed to the subacromial space. The bursal was removed using the shaver and the undersurface of the acromion was skeletonized using the electrocautery device. A 4.0 mm oval graeme was used to do an acromioplasty. All excess debris was removed. Then attention was directed to the rotator cuff and the cuff had some unstable fraying. Decision was made to treat this with a Regeneten patch due to her partial-thickness tearing. A size medium patch was then brought to the field and placed under arthroscopic visualization. The medial aspect was secured with tendon jeovanny, the lateral aspect with PEEK jeovanny. The graft was found to be well secured. Final images were obtained. The shoulder was taken through range of motion. Wounds were copiously irrigated with sterile saline. The portals were closed with 3-0 nylon. Sterile dressings were applied and a regular sling was applied. She was awoken from anesthesia and transferred to the PACU in stable condition. POSTOPERATIVE PLAN: She will be nonweightbearing. She will be in a sling for approximately 2 to 3 days. Discharged on pain medication. DVT prophylaxis was considered, but deferred due to no previous personal or family history. I will see the patient back in 10 to 14 days. [id number]/[facility] #: [id number]/[facility] #: [id number] NUSRAT
--- NOTE | 2019-02-13 15:46 | OP ---
OPERATIVE REPORT: DATE OF OPERATION: 02/03/19 DATE OF : 76 ADDENDUM: DESCRIPTION OF PROCEDURE: After appropriate surgical pause indicating side, site, procedure, and adm inistration of antibiotics, the standard posterolateral portal was made sharply with 11-blade. Scope was introduced into the joint and the joint was examined. There was abundant synovitis that was pre sent. There was partial- thickness tearing of the rotator cuff. The inferior recess was intact. Th ere were synovitic changes and there was a small [place] lesion. There was evidence of superior hanny l type 2 changes with bicipital tendinitis and this was then tenotomized. The remainder of the gleno humeral joint had grade 0 to 1 changes. After the intraarticular work was completed, the attention wa s directed to the rotator cuff and the cuff had some unstable fraying. Decision was made to treat th is with a Regeneten patch due to her partial-thickness tearing. A size medium patch was then brought to the field and placed under arthroscopic visualization. The medial aspect was secured with tendon jeovanny, the lateral aspect with PEEK jeovanny. The graft was found to be well secured. Final images were obtained. The shoulder was taken through range of motion. Wounds were copiously irrigated wit h sterile saline. The portals were closed with 3-0 nylon. Sterile dressings were applied and a regu lar sling was applied. She was awoken from anesthesia and transferred to the PACU in stable conditio n. POSTOPERATIVE PLAN: She will be nonweightbearing. She will be in a sling for approximately 2 to 3 d ays. Discharged on pain medication. DVT prophylaxis was considered, but deferred due to no previous personal or family history. I will see the patient back in 10 to 14 days. [id number]/[facility] #: [id number]
== END 2019-02-03 13:04 | disposition home or self-care (01) ==
LOC: OREAST 07:46
PROVIDERS: ATTEND Orthopaedic Surgery
DX: M75.111 Incomplete rotator cuff tear or rupture of right shoulder, not specified as traumatic (principal); M75.21 Bicipital tendinitis, right shoulder; M75.42 Impingement syndrome of left shoulder; M25.512 Pain in left shoulder; G89.18 Other acute postprocedural pain; I34.1 Nonrheumatic mitral (valve) prolapse; M06.9 Rheumatoid arthritis, unspecified; F17.200 Nicotine dependence, unspecified, uncomplicated
CPT/HCPCS: C1713; J0690; J1100; J1240; J1642; J1885; J2250; J2405; J2704; J2795; J3010